=== PATIENT | female | born 1985 | race Caucasian/White ===

== ENCOUNTER → 2017-03-19 | Outpatient (CLI) | payer OTHER ==
[~2017-03-19] MED LIST: /PANT40TA OR; ACET500C OR; ADDE20TA PO; BIRTH CONTROL PILL PO; CARA1SUS PO; CELE20TA PO; GLUC500T; HYDR7.5T30 PO; IMIT6KIT SC; IMITREX SC; PERC5TAB8 OR; PRENATAL VITAMIN PO; PYRI200T2 PO; TRAZ100T2 PO; VICO5TAB; VICO5TAB OR; XANA0.5T OR; XANA1TAB2 PO; ZOFR8TAB OR; [UNRECOGNIZED DRUG - CODE] PO; acetaminophen PO; levaquin PO; oxycontin PO; percocet PO
== END ==
LOC: M OUTALCOH 12:45
PROVIDERS: ATTEND Psychiatry & Neurology Psychiatry
DX: F11.20 Opioid dependence, uncomplicated (principal)

== ENCOUNTER 2017-03-28 11:00 | Outpatient (RCR) | payer OTHER | END 2017-03-31 | LOC: M OUTALCOH 11:00 | PROVIDERS: ATTEND Psychiatry & Neurology Psychiatry | DX: F11.20 Opioid dependence, uncomplicated (principal) ==

== ENCOUNTER 2020-01-28 07:50 | Emergency (ER) | payer OTHER ==
[~2020-01-28 07:50] MED LIST changes: -/PANT40TA OR; +ISOVUE-370 76% 100ML VIAL As Ordered ONE; +ONDA-227 OR; +PROT1TAB2 OR; -ZOFR8TAB OR
[2020-04-11 11:35] LABS: HCG, SERUM QUALITATIVE NEGATIVE (NEGATIVE)
== END 2020-01-28 09:40 | disposition home or self-care (01) ==
LOC: M ED 07:50
DX: Z76.0 Encounter for issue of repeat prescription (principal); F90.9 Attention-deficit hyperactivity disorder, unspecified type; E28.2 Polycystic ovarian syndrome; Z79.899 Other long term (current) drug therapy; Z88.2 Allergy status to sulfonamides

== ENCOUNTER 2020-02-29 23:32 | Emergency (ER) | payer OTHER ==
[~2020-02-29] VITALS: Ht 165.1 cm; Wt 48.0 kg
[~2020-02-29 23:32] MED LIST changes: -ISOVUE-370 76% 100ML VIAL As Ordered ONE
[2020-03-01] MEDS ORDERED: OXYC10TA12 PO (00:11)
[2020-03-01] MEDS ORDERED: BUPR150T3 PO (00:11)
[2020-03-01 02:15] VITALS: BP 106/51
== END 2020-03-01 02:07 | disposition home or self-care (01) ==
LOC: M ED 23:32
DX: F32.9 Major depressive disorder, single episode, unspecified (principal); F17.200 Nicotine dependence, unspecified, uncomplicated; Z79.3 Long term (current) use of hormonal contraceptives; Z79.899 Other long term (current) drug therapy; Z79.891 Long term (current) use of opiate analgesic; Z88.2 Allergy status to sulfonamides; Z88.8 Allergy status to other drugs, medicaments and biological substances

== ENCOUNTER → 2020-04-17 | Outpatient (REF) | payer OTHER ==
[~2020-04-17] MED LIST changes: +BUPR150T3 PO; +BUPR15TA PO; +OXYC10TA12 PO
== END ==
LOC: M WUC 14:55
PROVIDERS: ATTEND Nurse Practitioner Family
DX: R30.0 Dysuria (principal)

== ENCOUNTER 2020-04-21 13:15 | Emergency (ER) | payer OTHER ==
[~2020-04-21] VITALS: Ht 165.1 cm; Wt 50.1 kg
[~2020-04-21 13:15] MED LIST changes: -BUPR15TA PO
[2020-04-21 13:16] VITALS: BP 118/71
[2020-04-21] MEDS ORDERED: BUPR15TA PO (14:10)
== END 2020-04-21 14:13 | disposition home or self-care (01) ==
LOC: M ED 13:15
DX: Z76.0 Encounter for issue of repeat prescription (principal); F33.9 Major depressive disorder, recurrent, unspecified; F90.9 Attention-deficit hyperactivity disorder, unspecified type; Z88.2 Allergy status to sulfonamides; Z88.1 Allergy status to other antibiotic agents; Z88.8 Allergy status to other drugs, medicaments and biological substances; Z79.899 Other long term (current) drug therapy

== ENCOUNTER → 2020-12-22 | Outpatient (REF) | payer OTHER ==
[~2020-12-22] MED LIST changes: +BUPR150T12 PO; -BUPR150T3 PO; +BUPR15TA PO
== END ==
LOC: M WUC 16:22
PROVIDERS: ATTEND Physician Assistant
DX: N39.0 Urinary tract infection, site not specified (principal)

== ENCOUNTER 2021-11-24 12:40 | Emergency (ER) | payer BC, OTHER ==
[~2021-11-24] VITALS: Ht 167.6 cm; Wt 58.6 kg
[2021-11-24] MEDS ORDERED: QUET100T2 (12:46)
[2021-11-24] MEDS ORDERED: DEXTROAMP-AMPHETAMIN (12:46)
[2021-11-24] MEDS ORDERED: BUPR8SUB (12:46)
[2021-11-24] MEDS ORDERED: BUPR1TAB52 (12:46)
[2021-11-24] MEDS ORDERED: WELL100T2 PO (14:23)
[2021-11-24 14:30] VITALS: BP 122/83
== END 2021-11-24 14:32 | disposition home or self-care (01) ==
LOC: M ED 12:40
DX: Z76.0 Encounter for issue of repeat prescription (principal); F41.9 Anxiety disorder, unspecified; Z88.2 Allergy status to sulfonamides; Z88.6 Allergy status to analgesic agent; Z79.811 Long term (current) use of aromatase inhibitors; Z79.899 Other long term (current) drug therapy

== ENCOUNTER 2022-01-20 10:00 | Emergency (ER) | payer BC, SELFPAY ==
[~2022-01-20] VITALS: Ht 165.1 cm; Wt 57.5 kg
[~2022-01-20 10:00] MED LIST changes: +BUPR1TAB52; +BUPR8SUB; +DEXTROAMP-AMPHETAMIN; +QUET100T2; +WELL100T2 PO
[2022-01-20 10:02] VITALS: BP 108/70
== END 2022-01-20 11:00 | disposition left against medical advice (07) ==
LOC: M ED 10:00
DX: Z53.21 Procedure and treatment not carried out due to patient leaving prior to being seen by health care provider (principal)

== ENCOUNTER 2022-01-22 17:01 | Emergency (ER) | payer BC, SELFPAY ==
[~2022-01-22] VITALS: Ht 165.1 cm; Wt 58.2 kg
[2022-01-22 17:02] VITALS: BP 109/65
[2022-01-22] MEDS ORDERED: WELL100T2 PO (18:11)
== END 2022-01-22 18:19 | disposition home or self-care (01) ==
LOC: M ED 17:01
DX: Z76.0 Encounter for issue of repeat prescription (principal); G43.909 Migraine, unspecified, not intractable, without status migrainosus; K21.9 Gastro-esophageal reflux disease without esophagitis; K44.9 Diaphragmatic hernia without obstruction or gangrene; Z87.42 Personal history of other diseases of the female genital tract; Z88.2 Allergy status to sulfonamides; Z88.6 Allergy status to analgesic agent; Z88.8 Allergy status to other drugs, medicaments and biological substances; Z79.811 Long term (current) use of aromatase inhibitors

== ENCOUNTER → 2022-07-28 | Outpatient (REF) | LOC: M EMP 09:21 | PROVIDERS: ATTEND Family Medicine | DX: Z11.52 Encounter for screening for COVID-19 (principal) ==

== ENCOUNTER → 2022-07-28 | Outpatient (REF) ==
[2022-07-28 15:11] LABS: RSV AMPLIFICATION NEGATIVE (NEGATIVE)
== END ==
LOC: M EMP 10:18
PROVIDERS: ATTEND Family Medicine
DX: Z11.59 Encounter for screening for other viral diseases (principal)

== ENCOUNTER → 2024-06-12 | Outpatient (REF) | payer BC | LOC: M WUC 16:26 | PROVIDERS: ATTEND Nurse Practitioner Family | DX: R30.0 Dysuria (principal) ==

== ENCOUNTER → 2024-09-11 | Outpatient (CLI) | payer BC ==
[2024-09-11 14:49] LABS: BASO # 0.1 10^3/uL (0.0-0.2); BASO % 1.1 % (0.0-1.0); EOS # 0.4 10^3/uL (0.0-0.5); EOS % 4.7 % (0.0-3.0); HEMATOCRIT 39.5 % (36.0-47.0); HEMOGLOBIN 12.4 g/dl (12.0-15.5); LYMPH # 3.1 10^3/uL (1.5-5.0); LYMPH % 38.2 % (24.0-44.0); MEAN CORPUSCULAR HEMOGLOBIN 26.7 pg (27.0-33.0); MEAN CORPUSCULAR HGB CONC 31.4 g/dl (32.0-36.5); MEAN CORPUSCULAR VOLUME 85.1 fl (80.0-96.0); MONO # 0.6 10^3/uL (0.0-0.8); MONO % 7.9 % (2.0-8.0); NEUTROPHILS # 3.9 10^3/uL (1.5-8.5); NEUTROPHILS % 47.9 % (36.0-66.0); PLATELET COUNT, AUTOMATED 292 10^3/uL (150-450); RED BLOOD COUNT 4.64 10^6/uL (4.00-5.40); WHITE BLOOD COUNT 8.1 10^3/uL (4.0-10.0)
[2024-09-11 15:20] LABS: ALBUMIN 4.1 G/DL (3.2-5.2); ALKALINE PHOSPHATASE 121 U/L (35-104); ALT/SGPT 25 U/L (7.0-40); AST/SGOT 23 U/L (<34); BILIRUBIN,TOTAL 0.4 MG/DL (0.3-1.2); BLOOD UREA NITROGEN 20 MG/DL (9-23); CALCIUM LEVEL 9.3 MG/DL (8.5-10.1); CARBON DIOXIDE LEVEL 32 MMOL/L (20-31); CHLORIDE LEVEL 101 MMOL/L (98-107); CREATININE FOR GFR 0.59 MG/DL (0.55-1.30); GLOMERULAR FILTRATION RATE > 60.0 (>60); GLUCOSE, FASTING 91 MG/DL (60-100); POTASSIUM SERUM 4.2 MMOL/L (3.5-5.1); SODIUM LEVEL 141 MMOL/L (136-145); TOTAL 25(OH) VITAMIN D 27.1 NG/ML (20.0-100.0); TOTAL PROTEIN 7.9 G/DL (5.7-8.2)
== END ==
LOC: M WUC 11:23
PROVIDERS: ATTEND Nurse Practitioner Psychiatric/Mental Health
DX: F41.1 Generalized anxiety disorder (principal); F11.99 Opioid use, unspecified with unspecified opioid-induced disorder

== ENCOUNTER → 2025-06-08 | Outpatient (CLI) | payer BC ==
[~2025-06-08] MED LIST changes: +BUPR-670; -BUPR1TAB52
[2025-06-08 17:17] LABS: BASO # 0.1 10^3/uL (0.0-0.2); BASO % 1.1 % (0.0-1.0); EOS # 0.4 10^3/uL (0.0-0.5); EOS % 4.8 % (0.0-3.0); LYMPH # 3.6 10^3/uL (1.5-5.0); LYMPH % 42.6 % (24.0-44.0); MONO # 0.7 10^3/uL (0.0-0.8); MONO % 8.0 % (2.0-8.0); NEUTROPHILS # 3.6 10^3/uL (1.5-8.5); NEUTROPHILS % 43.4 % (36.0-66.0); PLATELET COUNT, AUTOMATED 263 10^3/uL (150-450)
[2025-06-08 17:45] LABS: TOTAL 25(OH) VITAMIN D 22.9 NG/ML (20.0-100.0)
[2025-06-08 17:56] LABS: ALT/SGPT 31 U/L (7.0-40); AST/SGOT 25 U/L (<34); CALCIUM LEVEL 8.9 MG/DL (8.5-10.1); CARBON DIOXIDE LEVEL 29 MMOL/L (20-31); CHLORIDE LEVEL 103 MMOL/L (98-107); CREATININE FOR GFR 0.60 MG/DL (0.55-1.30); GLOMERULAR FILTRATION RATE > 90.0 (>58); POTASSIUM SERUM 3.9 MMOL/L (3.5-5.1); SODIUM LEVEL 141 MMOL/L (136-145)
== END ==
LOC: M WUC 13:36
PROVIDERS: ATTEND Nurse Practitioner Psychiatric/Mental Health
DX: F11.99 Opioid use, unspecified with unspecified opioid-induced disorder (principal)